=== PATIENT | male | born 1970 | race Caucasian/White ===

== ENCOUNTER 2018-04-22 15:51 | Observation (INO) ==
[2018-04-22] MEDS ORDERED: 0.9 % Sodium Chloride 1,000 ML IVC ONE ×2 (16:14→16:39)
--- NOTE | 2018-04-22 16:17 | Emergency Department Note ---
Disposition Clinical Impression: Abdominal pain Qualifiers: Abdominal location: epigastric Qualified Code(s): R10.13 - Epigastric pain Nausea & vomiting Qualifiers: Vomiting type: unspecified Vomiting Intractability: non-intractable Qualified Code(s): R11.2 - Nausea with vomiting, unspecified Disposition: Admitted As Inpatient Condition: Fair Time of Disposition: 20:55 General Adult HPI - General Chief complaint: ED Abdominal Pain Stated complaint: Black Bloody stool Time Seen by Provider: 04/22/18 16:05 Nursing Notes Reviewed: Yes Vital Signs Reviewed: Yes - History of Present Illness HPI Narrative: 47-year-old male presents to the emergency department after being sent here by his roll changer for concern for nausea, vomiting, epigastric abdominal pain and concern for dehydration. Dr. Pitt recommended that the patient be admitted. Patient has history of Crohn's disease. He is reporting melenic stool. Patient has any fevers, chills but is reporting epigastric abdominal pain. He denies any shortness of breath, cough, chest pain, pressure, tightness. Pain Scale: 8 - Related Data Home Medications Medication Instructions Recorded Confirmed Escitalopram [Lexapro] 20 mg PO DAILY 04/22/18 04/22/18 OxyCODONE/APAP 5/325 [Percocet 1 tab PO BID 04/22/18 04/22/18 5/325 MG] Prazosin HCl [Minipress] 5 mg PO DAILY 04/22/18 04/22/18 Tizanidine HCl 4 mg PO DAILY PRN 04/22/18 04/22/18 Zolpidem Tartrate [Ambien Cr] 12.5 mg PO HS 04/22/18 04/22/18 clonazePAM [Klonopin] 1 mg PO QID PRN 04/22/18 04/22/18 Allergies Allergy/AdvReac Type Severity Reaction Status Date / Time cefdinir [From Omnicef] Allergy See Verified 04/22/18 15:55 Comments levofloxacin [From Levaquin] Allergy Abdominal Verified 04/22/18 15:55 Pain morphine Allergy Difficulty Verified 04/22/18 15:55 Breathing Penicillins Allergy Nausea Verified 04/22/18 15:55 Sulfa (Sulfonamide Allergy Difficulty Verified 04/22/18 15:55 Antibiotics) Breathing lithium grease Allergy Swelling Uncoded 10/10/16 21:01 of Lip/Tongue/Throat All systems ED: reviewed and negative except as stated. Review of Systems: As Per HPI Constitutional: Denies: fever Cardiovascular: Denies: chest pain, palpitations Respiratory: Denies: cough, dyspnea Gastrointestinal: Reports: abdominal pain, nausea, vomiting, diarrhea, melena Genitourinary: Denies: urgency, dysuria, frequency Integumentary: Denies: rash Neurological: Denies: headache Past Medical History - Past Medical History Medical history: Reports: other Surgical history: Reports: appendectomy Psychiatric history: Reports: anxiety - Social History Smoking Status: Never smoker Smokeless Tobacco Status: No Alcohol use: Reports: none Drug use: Reports: none Physical Exam - Head Head exam: normocephalic - Eye Eye exam: Present: EOMI - ENT ENT exam: normal oropharynx - Neck Neck exam: Present: trachea midline - Chest Chest inspection: Present: symmetric chest wall rise - Respiratory Respiratory exam: Present: normal lung sounds bilaterally. Absent: respiratory distress - Cardiovascular Cardiovascular exam: Present: regular rate, normal rhythm, normal heart sounds - Abdominal Exam Abdominal exam: Present: soft, tenderness. Absent: distention, guarding, rebound Abdominal tenderness: Present: epigastrium, mild - Rectal Exam Cafe Attendant present during exam: Yes Rectal exam: Absent: heme (-) stool, hemorrhoids - Extremities Exam Extremities exam: Present: normal capillary refill - Back Exam Back exam: Present: full ROM - Neurological Exam Neurological exam: Present: alert, oriented X3 - Psychiatric Psychiatric exam: Present: normal affect, normal mood - Skin Skin exam: Present: warm, dry, intact, normal color Course Vital Signs Temperature 98.1 F 04/22/18 15:54 Pulse Rate 80 04/22/18 15:54 Respiratory Rate 18 04/22/18 15:54 Blood Pressure 118/79 04/22/18 15:54 O2 Sat by Pulse Oximetry 98 04/22/18 15:54 Temperature 98.1 F 04/22/18 16:12 Pulse Rate 80 04/22/18 16:12 Respiratory Rate 18 04/22/18 16:12 Blood Pressure 118/79 04/22/18 16:12 O2 Sat by Pulse Oximetry 98 04/22/18 16:12 Oxygen Delivery Oxygen Delivery Room Air Medical Decision Making - [facility] Narrative Medical decision making narrative: 47 year old male presents to the emergency department with concern for nausea, vomiting, melenic stool. Patient appears to be mildly uncomfortable on physical exam. He had epigastric tenderness to palpation on physical exam. We obtained a CBC and it did not reveal a leukocytosis or any evidence of anemia. Kidney function was normal. Patient did have an elevated specific gravity of his urine which could correlate with dehydration. Urinalysis not reveal any evidence of infection. Hemoccult was obtained and was not positive. Patient was given pain medication here in the emergency department. He was also given Zofran for his nausea. Patient was given 2 L of fluid here as well. Obtain CT scan of abdomen and pelvis and this or not reveal any acute abnormality. EKG did not reveal any evidence of ischemia. Troponin was negative. At this time, we will admit patient for further observation and management. Dr. Pitt was consulted as well and he will follow the patient and the hospital. Patient agrees to plan for admission as this is his expectation upon arrival. Patient hemodynamic stable at that time. Chest X-Ray 04/22/18 16:15 IMPRESSION: No acute cardiopulmonary process. D/ / 04/22/2018 16:41:54 Jaret Coto MD / sudha Interpreting Provider: Jaret Coto MD Abdomen/Pelvis CT 04/22/18 16:38 IMPRESSION: No CT evidence for acute intra-abdominal process D/ / Sanjay De Souza / Sanjay De Souza Interpreting Provider: Sanjay De Souza - Lab Data Result diagrams: 04/22/18 16:51 04/22/18 16:51 Lab Results 04/22/18 04/22/18 04/22/18 Range/Units 16:51 16:51 16:51 WBC 10.4 (4.3-11.1) K/mcL RBC 5.46 (4.19-5.50) M/mcL Hgb 15.9 (12.9-16.9) g/dL Hct 46.7 (37.5-50.1) % MCV 85.5 (83.0-100.0) fL MCH 29.1 (28.0-33.3) pg MCHC 34.0 (31.6-35.5) g/dL RDW 13.0 (11.5-14.5) % Plt Count 336 (140-400) K/mcL MPV 9.0 L (9.4-12.4) fL Immature Gran % 0.4 (0-4) % Seg Neutrophils % 72.1 % Lymphocytes % 20.2 % Monocytes % 5.7 % Eosinophils % 1.0 % Basophils % 0.6 % Neutrophils # 7.5 (1.6-8.9) K/mcL Lymphocytes # 2.1 (0.6-4.6) K/mcL Monocytes # 0.6 (0.0-1.3) K/mcL Eosinophils # 0.1 (0.0-0.6) K/mcL Basophils # 0.1 (0.0-0.2) K/mcL PT 12.4 H (9.4-12.1) Seconds INR 1.1 APTT 36.1 H (26.0-36.0) Seconds Sodium 143 (136-145) mEq/L Potassium 3.6 (3.5-5.1) mEq/L Chloride 104 (98-107) mEq/L Carbon Dioxide 29 (23-29) mEq/L BUN 14 (6-20) mg/dL Creatinine 0.92 (0.70-1.30) mg/dL Est GFR ( Amer) > 60 (> 60) Est GFR (Non-Af Amer) > 60 (> 60) BUN/Creatinine Ratio 15 (6-26) Glucose 122 H (70-105) mg/dL Calculated Osmolality 298 (280-300) Calcium 10.1 (8.6-10.3) mg/dL Total Bilirubin 0.7 (0.3-1.0) mg/dL Direct Bilirubin 0.1 (0.0-0.2) mg/dL Indirect Bilirubin 0.6 (0.0-1.2) mg/dL AST 17 (13-39) Units/L ALT 13 (7-52) Units/L Alkaline Phosphatase 104 (34-104) Units/L Troponin I (< 0.04) ng/mL Serum Total Protein 7.5 (6.4-8.9) g/dL Albumin 5.1 (3.5-5.7) g/dL Globulin 2.4 (2.4-3.5) g/dL Albumin/Globulin Ratio 2.1 (1.1-2.2) Amylase 31 (29-103) Units/L Lipase 55 (11-82) Units/L Urine Color (Yellow) Urine Clarity (Clear) Urine pH (5.0-8.0) pH Units Ur Specific Lynch (1.010-1.025) Urine Protein (Neg-Trace) mg/dL Urine Glucose (UA) (Normal) mg/dL Urine Ketones (Negative) mg/dL Urine Blood (Negative) Urine Nitrite (Negative) Urine Bilirubin (Negative) Urine Urobilinogen (Normal) mg/dL Ur Leukocyte Esterase (Negative) Ur Culture Indicated? (NO) Stool Occult Blood (Negative) 04/22/18 04/22/18 04/22/18 Range/Units 16:51 20:11 20:33 WBC (4.3-11.1) K/mcL RBC (4.19-5.50) M/mcL Hgb (12.9-16.9) g/dL Hct (37.5-50.1) % MCV (83.0-100.0) fL MCH (28.0-33.3) pg MCHC (31.6-35.5) g/dL RDW (11.5-14.5) % Plt Count (140-400) K/mcL MPV (9.4-12.4) fL Immature Gran % (0-4) % Seg Neutrophils % % Lymphocytes % % Monocytes % % Eosinophils % % Basophils % % Neutrophils # (1.6-8.9) K/mcL Lymphocytes # (0.6-4.6) K/mcL Monocytes # (0.0-1.3) K/mcL Eosinophils # (0.0-0.6) K/mcL Basophils # (0.0-0.2) K/mcL PT (9.4-12.1) Seconds INR APTT (26.0-36.0) Seconds Sodium (136-145) mEq/L Potassium (3.5-5.1) mEq/L Chloride (98-107) mEq/L Carbon Dioxide (23-29) mEq/L BUN (6-20) mg/dL Creatinine (0.70-1.30) mg/dL Est GFR ( Amer) (> 60) Est GFR (Non-Af Amer) (> 60) BUN/Creatinine Ratio (6-26) Glucose (70-105) mg/dL Calculated Osmolality (280-300) Calcium (8.6-10.3) mg/dL Total Bilirubin (0.3-1.0) mg/dL Direct Bilirubin (0.0-0.2) mg/dL Indirect Bilirubin (0.0-1.2) mg/dL AST (13-39) Units/L ALT (7-52) Units/L Alkaline Phosphatase (34-104) Units/L Troponin I < 0.03 (< 0.04) ng/mL Serum Total Protein (6.4-8.9) g/dL Albumin (3.5-5.7) g/dL Globulin (2.4-3.5) g/dL Albumin/Globulin Ratio (1.1-2.2) Amylase (29-103) Units/L Lipase (11-82) Units/L Urine Color Yellow (Yellow) Urine Clarity Clear (Clear) Urine pH 6.0 (5.0-8.0) pH Units Ur Specific Lynch > 1.030 H (1.010-1.025) Urine Protein Negative (Neg-Trace) mg/dL Urine Glucose (UA) Normal (Normal) mg/dL Urine Ketones Negative (Negative) mg/dL Urine Blood Negative (Negative) Urine Nitrite Negative (Negative) Urine Bilirubin Negative (Negative) Urine Urobilinogen Normal (Normal) mg/dL Ur Leukocyte Esterase Negative (Negative) Ur Culture Indicated? NO (NO) Stool Occult Blood Negative (Negative) - EKG Data EKG #1 EKG attestation: Yes I reviewed and interpreted this EKG. EKG results narrative: 16:34 Ventricular rate 80 bpm, MD interval 132 ms, QRS duration 95 ms, QT 368 ms, QTC 404 ms, normal axis. Sinus rhythm with a ventricular rate of 80 beats for minute. No evidence of any ischemic ST changes on this EKG. Attestation Statement - Attestation Attestation: Patient was seen with resident physician. I reviewed the history, physical, assessment and plan, and agree with the findings. I also personally evaluated this patient and had [id number] time with this patient. 47-year-old male presents emergency Department chief complaint of abdominal pain. He also has had dark stools. Patient has a history of admissions for Crohn's disease. He was seen by Dr. Haider was sent him in to the emergency department for evaluation and admission. Patient states he symptoms started several days ago and have progressively gotten worse. He said maybe for 5 days of the darker stools. No fevers or chills. He is also had nausea and vomiting. Review of systems as above remained reviewed. Physical exam vital signs are stable. ENT is unremarkable. Heart regular rhythm and rate. Lungs clear. Abdomen soft diffusely tender without guarding rigidity. Extremities unremarkable. Neurologically intact. Skin no rashes. Rectal per resident note. Initial H&H was normal. We will do remainder of workup. Treat with IV fluids. We will contact hospitalist service and arrange for admission for GI bleed. We will also get a CT scan the abdomen and pelvis to ensure there is no other abnormalities that need to be addressed. We already spoke with Dr. Haider prior to the patient's arrival. He will be consult on this case. Workup did not reveal any specific abnormalities that would result in the patient's symptoms. Agree with the resident physician assessment and plan.
[2018-04-22] MEDS ORDERED: Isovue-370 500 ML INFUS..BTL IV ONE (16:38)
[2018-04-22] MEDS ORDERED: Ondansetron 4 MG/2 ML VIAL IVP ONE (16:39)
[2018-04-22] MEDS ORDERED: *HR* FentaNYL (PF) 100 MCG/2 ML VIAL IVP ONE ×3 (16:39→20:55)
[2018-04-22] MEDS ORDERED: Pantoprazole 40 MG VIAL IVP ONE (16:40)
[2018-04-22 17:06] LABS: Basophils # 0.1 K/mcL (0.0-0.2); Basophils % 0.6 %; Eosinophils # 0.1 K/mcL (0.0-0.6); Hematocrit 46.7 % (37.5-50.1); Hemoglobin 15.9 g/dL (12.9-16.9); Immature Granulocytes % 0.4 % (0-4); Lymphocytes # 2.1 K/mcL (0.6-4.6); Lymphocytes % 20.2 %; Mean Corpuscular Hemoglobin 29.1 pg (28.0-33.3); Mean Corpuscular Volume 85.5 fL (83.0-100.0); Monocytes # 0.6 K/mcL (0.0-1.3); Monocytes % 5.7 %; Neutrophils # 7.5 K/mcL (1.6-8.9); Platelet Count 336 K/mcL (140-400); Red Blood Count 5.46 M/mcL (4.19-5.50); Segmented Neutrophils % 72.1 %
[2018-04-22 17:11] LABS: INR 1.1; Prothrombin Time 12.4 Seconds (9.4-12.1)
[2018-04-22 17:13] LABS: Activated Partial Thrombo Time 36.1 Seconds (26.0-36.0)
[2018-04-22 17:22] LABS: Alanine Aminotransferase 13 Units/L (7-52); Albumin 5.1 g/dL (3.5-5.7); Albumin/Globulin Ratio 2.1 (1.1-2.2); Alkaline Phosphatase 104 Units/L (34-104); Amylase 31 Units/L (29-103); Aspartate Amino Transferase 17 Units/L (13-39); BUN/Creatinine Ratio 15 (6-26); Bilirubin,Direct 0.1 mg/dL (0.0-0.2); Bilirubin,Indirect 0.6 mg/dL (0.0-1.2); Bilirubin,Total 0.7 mg/dL (0.3-1.0); Blood Urea Nitrogen 14 mg/dL (6-20); Calcium 10.1 mg/dL (8.6-10.3); Carbon Dioxide 29 mEq/L (23-29); Chloride 104 mEq/L (98-107); Globulin 2.4 g/dL (2.4-3.5); Glucose 122 mg/dL (70-105); Lipase 55 Units/L (11-82); Osmolality,Calculated 298 (280-300); Potassium 3.6 mEq/L (3.5-5.1); Sodium 143 mEq/L (136-145); Total Protein 7.5 g/dL (6.4-8.9); eGFR For Non-African Americans > 60 (> 60)
[2018-04-22] MEDS ORDERED: clonazePAM 0.5 MG TABLET PO STA (18:20)
[2018-04-22 20:43] LABS: Bilirubin,Urine Negative (Negative); Blood,Urine Negative (Negative); Clarity,Urine Clear (Clear); Color,Urine Yellow (Yellow); Glucose,Urine (UA) Normal (Normal); Ketones,Urine Negative (Negative); Leukocyte Esterase,Urine Negative (Negative); Nitrite,Urine Negative (Negative); Protein,Urine Negative (Neg-Trace); Specific Gravity,Urine > 1.030 (1.010-1.025); Urobilinogen,Urine Normal (Normal)
[2018-04-22] MEDS ORDERED: tiZANidine 4 MG TABLET PO PRN (20:51)
[2018-04-22] MEDS ORDERED: Ondansetron 4 MG/2 ML VIAL IVP PRN (21:27)
--- NOTE | 2018-04-22 21:30 | Internal Med History&Physical ---
Date of Encounter: 04/22/18 Time of Encounter: 21:28 Internal Medicine - H&P: HPI Chief complaint: abdominal pain Admitted From: Home Plans for Post Hospital Care: Home History of present illness: Mr. Orozco is a 47 year old male who was diagnosed with Crohn's disease in the mid 90s who presents to the emergency room upon referral by his implementation services analyst due to complaints of nausea, vomiting, epigastric cramping abdominal pain and concern for dehydration. As per the patient the symptoms started within the last 5 days for which reason he sought medical attention, seeing Dr. Pitt who recommended that the patient be admitted. The patient states that over the last few days his stool has been completely black and more recently noticed jason blood. He says has he has been unable to tolerate by mouth he is now constipated. He describes the abdominal pain is cramping in nature and localized to the mid-region. No associated fever or chills. No dyspnea or chest pain. Plan arrival to the emergency room he was seen to have normal vital signs, unremarkable lab work, CT scan not showing any acute inflammatory process and a negative fecal occult blood test. Past Med Surg Social Fam HX - Past Medical History Medical history: other Additional medical history: chrons Psychiatric history: anxiety - Past Surgical History Surgical History: appendectomy Additional surgical history: testicular surgery. Back Surgery - Social History Smoking Status: Never smoker Smokeless Tobacco Status: No Alcohol use: none Drug use: none - Family History Mother Hx Family Cardiac Disorders: Yes Internal Medicine - H&P: Meds Escitalopram [Lexapro] 20 mg PO DAILY 04/22/18 [History] OxyCODONE/APAP 5/325 [Percocet 5/325 MG] 1 tab PO BID 04/22/18 [History] Prazosin HCl [Minipress] 5 mg PO DAILY 04/22/18 [History] Tizanidine HCl 4 mg PO DAILY PRN 04/22/18 [History] Zolpidem Tartrate [Ambien Cr] 12.5 mg PO HS 04/22/18 [History] clonazePAM [Klonopin] 1 mg PO QID PRN 04/22/18 [History] 3 Allergy/AdvReac Type Severity Reaction Status Date / Time cefdinir [From Omnicef] Allergy See Verified 04/22/18 15:55 Comments levofloxacin [From Levaquin] Allergy Abdominal Verified 04/22/18 15:55 Pain morphine Allergy Difficulty Verified 04/22/18 15:55 Breathing Penicillins Allergy Nausea Verified 04/22/18 15:55 Sulfa (Sulfonamide Allergy Difficulty Verified 04/22/18 15:55 Antibiotics) Breathing lithium grease Allergy Swelling Uncoded 10/10/16 21:01 of Lip/Tongue/Throat All Systems PM: A 10-system review of systems was performed and is negative for pertinent findings except as documented above in the HPI. - Constitutional Vitals: Temp Pulse Resp BP Pulse Ox 98.1 F 65 16 117/74 97 04/22/18 16:12 04/22/18 20:35 04/22/18 21:19 04/22/18 21:19 04/22/18 20:35 Exam: Vitals: Viewed and seen to be within normal limits General: Well developed lying in bed in no acute distress Skin: Warm and supple HEENT: Slightly dry mucous membranes. No conjunctivae pallor. Neck: No lymphadenopathy. No JVD. No carotid bruits. No palpable thyroid. Chest: Normal thoracic expansion. Normal breath sounds. Clear to auscultation. Heart: Normal S1 & S2; rhythmic. No rubs or murmurs. Abdomen: Non-distended, soft and moderately tender to palpation in the mesogastrium. No peritoneal reaction. Extremities: No clubbing, cyanosis or edema. No calf tenderness. Normal distal pulses. Neurological: Awake, alert and oriented to person, place and time. No focal deficits. Psych: Appropriate affect. Internal Med - H&P Results - Labs CBC & Chem 7: 04/22/18 16:51 04/22/18 16:51 - Assessment and plan (1) Abdominal pain Current Visit: Yes Status: Acute Assessment and plan: There was an initial concern for a Crohn's flareup. At this time he is afebrile , no inflammatory signs seen on CT, no masses palpated or seen on imaging, normal hemoglobin although perhaps a bit hemoconcentrated, stool test negative for blood. -Will hold off on giving steroids and antibiotics. -Pain control for now with oxycodone/apap as needed. -IVF to resuscitate losses. -GI consult has been requested and will be seen in the morning. Qualifiers: Abdominal location: periumbilical Qualified Code(s): R10.33 - Periumbilical pain (2) Crohn disease Current Visit: Yes Status: Chronic Assessment and plan: The patient has had a colonoscopy within the last 5 years which he states was only remarkable for a few polyps. He is not on any intermediate immunomodulating medications and has been well controlled. -Will be seen by GI for ongoing follow up. Qualifiers: Gastrointestinal tract location: small and large intestine Digestive disease complication type: other complication Qualified Code(s): K50.818 - Crohn's disease of both small and large intestine with other complication (3) Anxiety Current Visit: No Status: Chronic Assessment and plan: Continue clonazepam prn and escitalopram daily. (4) Dehydration Current Visit: Yes Status: Acute Assessment and plan: The patient has slightly dry mucous membranes and a urinary specific gravity of 1.030 suggestive of poor volume likely secondary to vomiting and poor oral intake from his abdominal pain. -Will replete with IV LR. (5) Chronic low back pain Current Visit: No Status: Chronic Assessment and plan: Patient had surgery with spinal fusion done. -Pain meds prn. Qualifiers: Back pain laterality: midline Sciatica presence: unspecified whether sciatica present Qualified Code(s): M54.5 - Low back pain; G89.29 - Other chronic pain (6) DVT prophylaxis Current Visit: No Status: Acute Assessment and plan: SubQ heparin ordered. - Time Spent With Patient Total time spent is greater than 50% in coordination of care (as documented) at patient's floor/unit and/or counseling patient: 25 - 35 minutes
[2018-04-22] MEDS: *HR* Heparin 5,000 UNIT/ML VIAL SQ SCH (22:26)
[2018-04-22] MEDS: Ringers Solution, Lactated 1,000 ML IVC SCH (22:29)
[2018-04-23] MEDS: clonazePAM 1 MG TABLET PO PRN ×4 (00:27→21:31)
[2018-04-23] MEDS: *HR* OxyCODONE/APAP 10/325 TABLET PO PRN ×6 (00:27→23:30)
[2018-04-23] MEDS: *HR* Heparin 5,000 UNIT/ML VIAL SQ SCH ×3 (05:47→21:35)
[2018-04-23] MEDS: Pantoprazole 40 MG VIAL IVP SCH (09:20)
--- NOTE | 2018-04-23 10:15 | Gastroenterology Consult Note ---
<Kobi Sandhun Carlos - Last Filed: 04/23/18 10:10> Date of Encounter: 04/23/18 Time of Encounter: 09:00 - Assessment and plan (1) Crohn disease Current Visit: Yes Status: Chronic Assessment and plan: not currently on treatment, had nausea and vomiting but is improved with IVF and medications, may need steroids if unimproved, will discuss with Dr Mott. Last colonoscopy 2010, is due for repeat Qualifiers: Gastrointestinal tract location: small and large intestine Digestive disease complication type: other complication Qualified Code(s): K50.818 - Crohn's disease of both small and large intestine with other complication (2) Abdominal pain Current Visit: Yes Status: Acute Assessment and plan: Pt states is improved with pain mediations Qualifiers: Abdominal location: periumbilical Qualified Code(s): R10.33 - Periumbilical pain (3) Nausea & vomiting Current Visit: Yes Status: Acute Assessment and plan: Improved, pt was eating a regular diet during assessment. Qualifiers: Vomiting type: unspecified Vomiting Intractability: non-intractable Qualified Code(s): R11.2 - Nausea with vomiting, unspecified - Time Spent With Patient Total time spent is greater than 50% in coordination of care (as documented) at patient's floor/unit and/or counseling patient: GI History of Present Illness - Data of Consult Patient: known to practice within the last 3 years Consult date: 04/23/18 Requesting Physician: Sofía Robert MD - Consult Narrative Reason for consult: crohn's disease History of present illness: Mr. Orozco is a 47 year old male who was diagnosed with Crohn's disease in the mid 90s who presents to the emergency room due to complaints of nausea, vomiting , epigastric cramping abdominal pain and concern for dehydration. Pt was seen in the office yesterday by Dr mott and complainted of coffee ground stools and BRBPR and weight loss of 21 pounds over the past 4 weeks. He reports symptoms started within the last 5 days.The patient states that over the last few days his stool has been completely black and more recently noticed jason blood. He says has he has been unable to tolerate by mouth he is now constipated. He describes the abdominal pain is cramping in nature and localized to the mid- region. No associated fever or chills. No dyspnea or chest pain. CT scan not showing any acute inflammatory process and a negative fecal occult blood test. He is not currently on antibiologics for crohn's disease. 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 EGD/COLON 2011 medium hiatal hernia, polyps, diverticulosis, mild inflammation from rectum to terminal ileum heparin 0547 Past Med Surg Social Fam HX - Past Medical History Medical history: other Additional medical history: chrons Psychiatric history: anxiety - Past Surgical History Surgical History: appendectomy, herniorrhaphy Additional surgical history: testicular surgery. Back Surgery - Social History Smoking Status: Never smoker Smokeless Tobacco Status: No Alcohol use: none Drug use: none - Family History Mother Adopted: No Hx Family Cardiac Disorders: Yes Review of Systems: GI: as per [facility]: denies fever, has some chills EYES: denies yellow discoloration ENT: denies pain with swallowing or difficulty swallowing CARDIO: denies chest pain, palpitations RESP: No Shortness of breath with exertion : reports dark urine and decreased urination NEURO: weakness HEME: Denies any bruising MS: denies joint pain, joint swelling or back pain. DERM: denies rash or itching PSYCH: history of anxiety or depression - Constitutional Vitals: Temp Pulse Resp BP Pulse Ox 97.8 F 58 14 90/57 94 04/23/18 07:44 04/23/18 07:44 04/23/18 07:44 04/23/18 07:44 04/23/18 07:44 Exam: CONSTITUTIONAL:~alert, no acute distress.~HEAD:~normocephalic.~EYES:~no jaundice.~NECK:~no obvious swelling.~HEART:~regular rate and rhythm, no murmurs. ~LUNGS:~bilateral good air entry.~ABDOMEN:~non distended, soft, tender, no masses palpable, no organomegaly, scar well healed~RECTAL EXAM:~Deferred.~ EXTREMITIES:~no clubbing, cyanosis or edema.~SKIN:~multiple tattoos, no stigmata of chronic liver disease.~NEUROLOGIC:~no obvious focal defect.~~~~ Results - Labs CBC & Chem 7: 04/22/18 16:51 04/22/18 16:51 Labs: Last Result Calcium 10.1 mg/dL (8.6-10.3) 04/22/18 16:51 Troponin I < 0.03 ng/mL (< 0.04) 04/22/18 16:51 Stool Occult Blood Negative (Negative) 04/22/18 20:11 Entire Visit Hgb 15.9 g/dL (12.9-16.9) 04/22/18 16:51 Hct 46.7 % (37.5-50.1) 04/22/18 16:51 PT 12.4 Seconds (9.4-12.1) H 04/22/18 16:51 Total Bilirubin 0.7 mg/dL (0.3-1.0) 04/22/18 16:51 AST 17 Units/L (13-39) 04/22/18 16:51 ALT 13 Units/L (7-52) 04/22/18 16:51 Amylase 31 Units/L (29-103) 04/22/18 16:51 Lipase 55 Units/L (11-82) 04/22/18 16:51 - ABG ABG results: PT/INR, D-dimer PT 12.4 Seconds (9.4-12.1) H 04/22/18 16:51 Consult Discharge Plan - Plan Referrals: Paulina Wong CNP [Primary Care Provider] - 04/30/18 3:00 pm Eric Mott MD [Partnered Physician] - (Web request entered. Office will call patient with date and time of appointment. Thank you) <Eric Mott - Last Filed: 04/23/18 17:42> Date of Encounter: 04/23/18 Time of Encounter: 17:30 - Time Spent With Patient Total time spent is greater than 50% in coordination of care (as documented) at patient's floor/unit and/or counseling patient: GI History of Present Illness - Data of Consult Requesting Physician: Sofía Robert MD - Consult Narrative History of present illness: Mr. Orozco is a 47 year old male - Constitutional Vitals: Temp Pulse Resp BP Pulse Ox 97.6 F 68 14 94/56 96 04/23/18 15:43 04/23/18 15:43 04/23/18 15:43 04/23/18 15:43 04/23/18 15:43 Results - Labs CBC & Chem 7: 04/22/18 16:51 08 16:51 Labs: Last Result Calcium 10.1 mg/dL (8.6-10.3) 04/22/18 16:51 Troponin I < 0.03 ng/mL (< 0.04) 04/22/18 16:51 Stool Occult Blood Negative (Negative) 04/22/18 20:11 Entire Visit Hgb 15.9 g/dL (12.9-16.9) 04/22/18 16:51 Hct 46.7 % (37.5-50.1) 04/22/18 16:51 PT 12.4 Seconds (9.4-12.1) H 04/22/18 16:51 Total Bilirubin 0.7 mg/dL (0.3-1.0) 04/22/18 16:51 AST 17 Units/L (13-39) 04/22/18 16:51 ALT 13 Units/L (7-52) 04/22/18 16:51 Amylase 31 Units/L (29-103) 04/22/18 16:51 Lipase 55 Units/L (11-82) 04/22/18 16:51 - ABG ABG results: PT/INR, D-dimer PT 12.4 Seconds (9.4-12.1) H 04/22/18 16:51 - Attending Attestation I have personally performed a face to face evaluation on this patient. I have reviewed and agree with the care plan. History and Exam by me shows: Pt seen. Patient with a history of Crohn disease. He was complaining of having some melena and red bleeding. [facility] patient is still not able to keep any food down. Scan was unremarkable. Recommendation: EGD to rule out peptic ulcer disease. Also colonoscopy with TI examination to make sure he does not have any recurrence of his Crohn's
--- NOTE | 2018-04-23 10:46 | Discharge Summary ---
- NOTES TO OUTPATIENT PROVIDER Notes to Outpatient Provider: follow up with PCP. follow up with Dr. AMADOR- is due to have EGD/ colonoscopy. last colonoscopy was in 2010 and due for a EGD/ colonoscopy. Date of Encounter: 04/23/18 Time of Encounter: 10:41 - Discharge Diagnosis (1) Abdominal pain Priority: Primary Status: Acute Qualifiers: Abdominal location: periumbilical Qualified Code(s): R10.33 - Periumbilical pain (2) Dehydration Priority: Secondary Status: Acute Hospital course: Mr. 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 He was seen at Dr. Amador gastroenterology office with these complaints and was referred to the emergency department to rule out acute exacerbations of his Crohn's. In the ED vitals were stable, CT scan of the abdomen was done results below, fecal occult blood test was negative. Admission labs were negative for any leukocytosis, H&H was stable BMP was unremarkable. He was treated with IV fluids and pain medications with resolution of his symptoms. He was able to tolerate by mouth diet. Spoke to Dr. Amador and he agreed with discharge and follow-up at his office for colonoscopy. as per GI - EGD/COLON 2010 medium hiatal hernia, polyps, diverticulosis, mild inflammation from rectum to terminal ileum CT A/P : IMPRESSION: No CT evidence for acute intra-abdominal process Discharge discussed with: patient, nurse, product support consultant (spoke to Dr. AMADOR who agrees with discharge and OP follow up for colonoscopy ) - Time Spent with Patient Total time spent providing and/or coordinating discharge services: Less than 30 minutes - Discharge Medications Home Medications: Escitalopram [Lexapro] 20 mg PO DAILY 04/22/18 [History] OxyCODONE/APAP 5/325 [Percocet 5/325 MG] 1 tab PO BID 04/22/18 [History] Prazosin HCl [Minipress] 5 mg PO DAILY 04/22/18 [History] Tizanidine HCl 4 mg PO DAILY PRN 04/22/18 [History] Zolpidem Tartrate [Ambien Cr] 12.5 mg PO HS 04/22/18 [History] clonazePAM [Klonopin] 1 mg PO QID PRN 04/22/18 [History] Allergies/Adverse Reactions: 3 Allergy/AdvReac Type Severity Reaction Status Date / Time cefdinir [From Omnicef] Allergy See Verified 04/22/18 15:55 Comments levofloxacin [From Levaquin] Allergy Abdominal Verified 04/22/18 15:55 Pain morphine Allergy Difficulty Verified 04/22/18 15:55 Breathing Penicillins Allergy Nausea Verified 04/22/18 15:55 Sulfa (Sulfonamide Allergy Difficulty Verified 04/22/18 15:55 Antibiotics) Breathing lithium grease Allergy Swelling Uncoded 10/10/16 21:01 of Lip/Tongue/Throat Date of admission: 04/22/18 20:53 Primary care physician: Paulina Wong CNP - Constitutional Vitals: Temp Pulse Resp BP Pulse Ox 97.8 F 58 14 90/57 94 04/23/18 07:44 04/23/18 07:44 04/23/18 07:44 04/23/18 07:44 04/23/18 07:44 Exam: General: Patient is alert, oriented, no acute distress, Head: atraumatic, normocephalic, Eye: normal appearance, PERRL, no scleral icterus, no conjunctival injection ENT: mucous membranes moist, normal external ear exam Neck: normal inspection, trachea midline, full ROM, no carotid bruits Chest: normal inspection, symmetric chest rise Respiratory: Good respiratory effort. Bilateral breath sounds are clear without wheezing, crackles, or rhonchi. Cardiovascular: Regular rate and rhythm. s1 and s2 No clicks, rubs, gallops, or murmors. Abdomen: Bowel sounds present normoactive x-4 quadrants. Abdomen is soft, nondistended. no Epigastric tenderness. No guarding or rebound. No organomegaly noted, obese musculoskeletal: Spontaneously moving all extremities. no edema, no calf tenderness Skin: warm, dry, intact. Neuro: Alert and oriented x4. Sensation light touch intact. Cranial nerves 2- 12 is intact. Not aphasic, gait is steady, rapid hand movements intact, finger- to-nose intact, Psych: Patient's affect is normal - Patient Status Disposition: Home, Self-Care Condition: Fair Functional capacity at discharge: independent ambulation Overall status at discharge: patient is progressing back to baseline - Discharge Instructions Follow Up With: Paulina Wong CNP [Primary Care Provider] - Eric Amador MD [Partnered Physician] - - Diet and Activity Activity: increase activity as tolerated, resume usual activities as tolerated Diet: advance to your usual diet
[2018-04-23] MEDS: Ringers Solution, Lactated 1,000 ML IVC SCH (11:01)
--- NOTE | 2018-04-23 15:33 | Internal Med Progress Note ---
Hospitalist Progress Note - Encounter Date of Encounter: 04/23/18 Time of Encounter: 09:30 - Subjective Interval History: Mr. 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 He was seen at Dr. Pitt gastroenterology office with these complaints and was referred to the emergency department to rule out acute exacerbations of his Crohn's. In the ED vitals were stable, CT scan of the abdomen was done results below, fecal occult blood test was negative. Admission labs were negative for any leukocytosis, H&H was stable BMP was unremarkable. GI was consulted as per GI - EGD/COLON 2011 medium hiatal hernia, polyps, diverticulosis, mild inflammation from rectum to terminal ileum patient developed pain after eating, discharge was held - Gi was updated on status. will follow up to see if he will need colonoscopy in tim AM or not. currently he denies N/v?D, has some genralized, crampy, 5/10, abdominal pain, that is not radiating. denies hematemesis, hematochezia or melena. denies CP,SOB or palpiations, fever or chills. - Exam Vitals: Temp Pulse Resp BP Pulse Ox 97.8 F 58 14 90/57 94 04/23/18 07:44 04/23/18 07:44 04/23/18 07:44 04/23/18 07:44 04/23/18 07:44 Exam: General: Patient is alert, oriented, no acute distress, Head: atraumatic, normocephalic, Eye: normal appearance, PERRL, no scleral icterus, no conjunctival injection ENT: mucous membranes moist, normal external ear exam Neck: normal inspection, trachea midline, full ROM, no carotid bruits Chest: normal inspection, symmetric chest rise Respiratory: Good respiratory effort. Bilateral breath sounds are clear without wheezing, crackles, or rhonchi. Cardiovascular: Regular rate and rhythm. s1 and s2 No clicks, rubs, gallops, or murmors. Abdomen: Bowel sounds present normoactive x-4 quadrants. Abdomen is soft, nondistended. no Epigastric tenderness. No guarding or rebound. No organomegaly noted, obese musculoskeletal: Spontaneously moving all extremities. no edema, no calf tenderness Skin: warm, dry, intact. Neuro: Alert and oriented x4. Sensation light touch intact. Cranial nerves 2- 12 is intact. Not aphasic, gait is steady, rapid hand movements intact, finger- to-nose intact, Psych: Patient's affect is normal - Assessment and Plan (1) Abdominal pain Current Visit: Yes Status: Acute Assessment and Plan: Doubt its Crohn's flareup as there is no leukocytosis and no suggestion of inflammation on CT abdomen and pelvis. Is not on immunosuppressants or Crohn's medications due to history of systemic histoplasmosis while on these drugs- discussed with GI pain control was it improved with pain medication GI on board will follow recommendations - last colonoscopy was done in 2010 and he is due for colonoscopy We will continue IV fluids Nothing by mouth (2) Dehydration Current Visit: Yes Status: Acute Assessment and Plan: Will continue to monitor electrolytes We will continue with IV fluids DVT Prophylaxis: On heparin subcutaneous - Time Spent with Patient Total time spent is greater than 50% in coordination of care (as documented) at patient's floor/unit and/or counseling patient: Plan of Care Discussed with: patient Internal Medicine: Result - Labs CBC & Chem 7: 04/22/18 16:51 04/22/18 16:51 - ABG Interpretation ABG results: PT/INR, D-dimer PT 12.4 Seconds (9.4-12.1) H 04/22/18 16:51 Consult Discharge Plan - Plan Referrals: Paulina Wong CNP [Primary Care Provider] - 04/30/18 3:00 pm Eric Pitt MD [Partnered Physician] - (Web request entered. Office will call patient with date and time of appointment. Thank you) (1) Abdominal pain Qualifiers: Abdominal location: generalized Qualified Code(s): R10.84 - Generalized abdominal pain
[2018-04-23] MEDS ORDERED: SODIUM CHLORIDE/NAHCO3/KCL/PEG 4,000 ML SOLN.RECON PO ONE (17:00)
[2018-04-23] MEDS: 0.9 % Sodium Chloride 1,000 ML IVC SCH (17:43)
--- NOTE | 2018-04-24 02:16 | Electrocardiograph Report ---
[address] [place], [place] [address] Test Date: 2018-04-22 Pat Name: Deepak Orozco Department: 103 Room: 3A22 Gender: M Sign Language Instructor: EKP : 1970 Requested By: Saleem Wright Order Number: [id number] Reading MD: Regla Eastman Measurements Intervals [place] Rate: 80 P: 17 UT: 133 QRS: 46 QRSD: 95 T: 30 QT: 368 QTc: 404 Interpretive Statements SINUS RHYTHM Electronically Signed On 04-23-2018 16:12:16 EDT by Regla Eastman
[2018-04-24] MEDS ORDERED: Ketorolac 30 MG/ML VIAL IVP ONE (03:04)
[2018-04-24] MEDS: *HR* OxyCODONE/APAP 10/325 TABLET PO PRN ×2 (04:13→09:48)
[2018-04-24 04:46] LABS: Basophils % 0.6 %; Eosinophils # 0.3 K/mcL (0.0-0.6); Eosinophils % 4.2 %; Hematocrit 36.9 % (37.5-50.1); Lymphocytes # 2.8 K/mcL (0.6-4.6); Lymphocytes % 44.3 %; Mean Corpuscular HGB Conc 33.3 g/dL (31.6-35.5); Mean Corpuscular Hemoglobin 28.7 pg (28.0-33.3); Mean Platelet Volume 9.2 fL (9.4-12.4); Monocytes # 0.4 K/mcL (0.0-1.3); Monocytes % 6.4 %; Neutrophils # 2.8 K/mcL (1.6-8.9); Platelet Count 257 K/mcL (140-400); Red Blood Count 4.29 M/mcL (4.19-5.50); Segmented Neutrophils % 44.5 %
[2018-04-24 04:51] LABS: Hemoglobin 12.3 g/dL (12.9-16.9)
[2018-04-24 04:55] LABS: BUN/Creatinine Ratio 10 (6-26); Blood Urea Nitrogen 8 mg/dL (6-20); Calcium 8.7 mg/dL (8.6-10.3); Carbon Dioxide 29 mEq/L (23-29); Chloride 109 mEq/L (98-107); Glucose 102 mg/dL (70-105); Osmolality,Calculated 285 (280-300); Potassium 3.7 mEq/L (3.5-5.1); Sodium 138 mEq/L (136-145); eGFR For Non-African Americans > 60 (> 60)
[2018-04-24] MEDS: *HR* Heparin 5,000 UNIT/ML VIAL SQ SCH ×2 (06:06→14:06)
[2018-04-24] MEDS ORDERED: Propofol 500 MG/50 ML INFUS..BTL ONE (06:35)
[2018-04-24] MEDS ORDERED: Lidocaine -MPF 2% 2 ML VIAL ONE (06:36)
[2018-04-24] MEDS ORDERED: *HR* Midazolam HCl 2 MG/2 ML VIAL ONE (07:06)
--- NOTE | 2018-04-24 07:59 | Anesthesia Evaluation PreOp ---
Date of Encounter: 04/24/18 Time of Encounter: 07:55 - Past History Planned Operation: EGD/colonoscopy Cardiac History: Denies any Significant Hx Pulmonary History: Denies Any Significant HX APPLICATOR SPRAYER History: Denies Any Significant HX, Other (s/p lumbar laminectomy) Other Medical History: Other (Crohn's disease) Anesthesia History: Past Anesthesia (multiple prior endoscopic procedures) Alcohol Use: none Drug use: none Medications and Allergies Escitalopram [Lexapro] 20 mg PO DAILY 04/22/18 [History] OxyCODONE/APAP 5/325 [Percocet 5/325 MG] 1 tab PO BID 04/22/18 [History] Prazosin HCl [Minipress] 5 mg PO DAILY 04/22/18 [History] Tizanidine HCl 4 mg PO DAILY PRN 04/22/18 [History] Zolpidem Tartrate [Ambien Cr] 12.5 mg PO HS 04/22/18 [History] clonazePAM [Klonopin] 1 mg PO QID PRN 04/22/18 [History] 3 Allergy/AdvReac Type Severity Reaction Status Date / Time cefdinir [From Omnicef] Allergy See Verified 04/22/18 15:55 Comments levofloxacin [From Levaquin] Allergy Abdominal Verified 04/22/18 15:55 Pain morphine Allergy Difficulty Verified 04/22/18 15:55 Breathing Penicillins Allergy Nausea Verified 04/22/18 15:55 Sulfa (Sulfonamide Allergy Difficulty Verified 04/22/18 15:55 Antibiotics) Breathing lithium grease Allergy Swelling Uncoded 10/10/16 21:01 of Lip/Tongue/Throat - Meds/Allergy Pre-op Review Medications Reviewed: Yes Allergies Reviewed: Yes Beta Blockers on Current Med List: No Anesthesia Results - Labs 04/24/18 04:25 04/24/18 04:25 Anesthesia Exam Selected Entries 04/24/18 06:40 Temperature 97.8 F Pulse Rate 50 Respiratory Rate 15 Blood Pressure 103/60 O2 Sat by Pulse Oximetry 95 Weight: 78 kg NPO (# of Hours): over 8 hours - HEENT Pupil (Motor): Pupils equal Mallampati: II Teeth: Normal Oral Opening: Greater than 3 - Cardiac Rhythm: Regular Murmur: None - Pulmonary Breath Sounds: bilateral Clear Respiratory Effort: Symmetrical Anesthesia Assess/Plan ASA Score: 2 Modified Issa Scale for Level of Consciousness: Cooperative, oriented, and tranquil Anesthetic Plan: MAC Monitoring Plan: Standard Monitors Recovery Plan: Other (Discussed MAC anesthesia, agreed to proceed.)
[2018-04-24] MEDS: 0.9 % Sodium Chloride 1,000 ML IVC SCH (08:24)
[2018-04-24] MEDS ORDERED: Simethicone 40 MG/0.6 ML MLS IR ONE (08:31)
[2018-04-24] MEDS: Pantoprazole 40 MG VIAL IVP SCH (09:49)
[2018-04-24] MEDS: clonazePAM 1 MG TABLET PO PRN ×2 (09:49→14:06)
[2018-04-24 16:38] VITALS: BP 94/57
== END 2018-04-24 17:00 | disposition home or self-care (01) ==
LOC: EMEROO 15:51 → 3ANU 15:51 → SUATTDRO 20:53 → 3ANU 21:20
PROVIDERS: ADMIT Student in an Organized Health Care Education/Training Program; ATTEND Internal Medicine
PROC: ENDOEBX (2018-04-24 08:00)

== ENCOUNTER 2019-06-18 11:53 | Observation (INO) ==
[2019-06-18] MEDS ORDERED: Aspirin 81 MG TAB.CHEW PO ONE (12:12)
[2019-06-18] MEDS ORDERED: Ondansetron 4 MG/2 ML VIAL IVP ONE (12:14)
[2019-06-18] MEDS ORDERED: 0.9 % Sodium Chloride 1,000 ML ONE (12:27)
[2019-06-18 12:35] LABS: Basophils # 0.1 K/mcL (0.0-0.2); Basophils % 0.7 %; Eosinophils # 0.3 K/mcL (0.0-0.6); Eosinophils % 2.4 %; Hematocrit 44.7 % (37.5-50.1); Hemoglobin 14.7 g/dL (12.9-16.9); Immature Granulocytes % 0.3 % (0-4); Lymphocytes # 2.1 K/mcL (0.6-4.6); Lymphocytes % 17.1 %; Mean Corpuscular HGB Conc 32.9 g/dL (31.6-35.5); Mean Corpuscular Hemoglobin 27.9 pg (28.0-33.3); Mean Corpuscular Volume 84.8 fL (83.0-100.0); Mean Platelet Volume 9.1 fL (9.4-12.4); Monocytes # 0.5 K/mcL (0.0-1.3); Platelet Count 340 K/mcL (140-400); Red Blood Count 5.27 M/mcL (4.19-5.50); Red Cell Distribution Width 12.5 % (11.5-14.5); Segmented Neutrophils % 75.5 %
[2019-06-18] MEDS: Nitroglycerin 0.4 MG TAB.SUBL SL PRN ×3 (12:35→12:51)
[2019-06-18 12:57] LABS: BUN/Creatinine Ratio 12 (6-26); Blood Urea Nitrogen 9 mg/dL (6-20); Calcium 9.4 mg/dL (8.6-10.3); Carbon Dioxide 28 mEq/L (23-29); Chloride 106 mEq/L (98-107); Glucose 109 mg/dL (70-105); Osmolality,Calculated 287 (280-300); Potassium 4.5 mEq/L (3.5-5.1); Sodium 139 mEq/L (136-145); Troponin I < 0.03 ng/mL (< 0.04); eGFR For African Americans > 60 (> 60); eGFR For Non-African Americans > 60 (> 60)
[2019-06-18] MEDS ORDERED: Morphine Sulfate 2 MG/ML SYRINGE IVP ONE (13:14)
[2019-06-18] MEDS ORDERED: 0.9 % Sodium Chloride 1,000 ML IVC ONE (13:14)
[2019-06-18] MEDS ORDERED: Isovue-370 500 ML BOTTLE IVP ONE (13:14)
[2019-06-18 13:53] LABS: Alanine Aminotransferase 6 Units/L (7-52); Albumin 4.2 g/dL (3.5-5.7); Albumin/Globulin Ratio 1.6 (1.1-2.2); Alkaline Phosphatase 105 Units/L (34-104); Aspartate Amino Transferase 13 Units/L (13-39); Bilirubin,Indirect 0.3 mg/dL (0.0-1.2); Bilirubin,Total 0.3 mg/dL (0.3-1.0); Globulin 2.6 g/dL (2.4-3.5); Total Protein 6.8 g/dL (6.4-8.9)
[2019-06-18 13:55] LABS: Bilirubin,Urine Negative (Negative); Blood,Urine Negative (Negative); Clarity,Urine Clear (Clear); Color,Urine Yellow (Yellow); Glucose,Urine (UA) Normal (Normal); Ketones,Urine Negative (Negative); Leukocyte Esterase,Urine Negative (Negative); Nitrite,Urine Negative (Negative); PH,Urine 7.5 pH Units (5.0-8.0); Protein,Urine Negative (Neg-Trace); Urobilinogen,Urine Normal (Normal)
[2019-06-18] MEDS ORDERED: *HR* HYDROmorphone (PF) 1 MG/ML SYRINGE IVP ONE (14:28)
[2019-06-18] MEDS ORDERED: Ondansetron 4 MG/2 ML VIAL IVP PRN (15:32)
[2019-06-18] MEDS ORDERED: Naloxone 0.4 MG/ML INJ IVP PRN (15:32)
[2019-06-18] MEDS ORDERED: Ketorolac 15 MG/ML VIAL IVP PRN (15:32)
[2019-06-18] MEDS: Ketorolac 30 MG/ML VIAL IVP PRN (19:33)
[2019-06-18] MEDS: Ringers Solution, Lactated 1,000 ML IVC SCH (19:34)
[2019-06-19] MEDS ORDERED: Acetaminophen IV 1,000 MG/100 ML INFUS..BTL IVPB ONE (00:50)
[2019-06-19] MEDS ORDERED: 0.9 % Sodium Chloride 1,000 ML IVC ONE (01:34)
[2019-06-19] MEDS ORDERED: Regadenoson 0.4 MG/5 ML SYRINGE IVP ONE (06:44)
[2019-06-19] MEDS ORDERED: Ringers Solution, Lactated 1,000 ML ONE (10:19)
[2019-06-19] MEDS: Ringers Solution, Lactated 1,000 ML IVC SCH (10:24)
[2019-06-19 10:36] LABS: Basophils # 0.1 K/mcL (0.0-0.2); Basophils % 0.8 %; Eosinophils # 0.2 K/mcL (0.0-0.6); Hematocrit 40.5 % (37.5-50.1); Hemoglobin 13.7 g/dL (12.9-16.9); Immature Granulocytes % 0.3 % (0-4); Lymphocytes # 2.2 K/mcL (0.6-4.6); Lymphocytes % 28.1 %; Mean Corpuscular HGB Conc 33.8 g/dL (31.6-35.5); Mean Corpuscular Hemoglobin 28.2 pg (28.0-33.3); Mean Corpuscular Volume 83.3 fL (83.0-100.0); Mean Platelet Volume 9.3 fL (9.4-12.4); Monocytes # 0.5 K/mcL (0.0-1.3); Monocytes % 5.8 %; Neutrophils # 4.8 K/mcL (1.6-8.9); Platelet Count 319 K/mcL (140-400); Red Blood Count 4.86 M/mcL (4.19-5.50); Red Cell Distribution Width 12.4 % (11.5-14.5); White Blood Count 7.7 K/mcL (4.3-11.1)
[2019-06-19 10:54] LABS: Alanine Aminotransferase 5 Units/L (7-52); Albumin 3.9 g/dL (3.5-5.7); Albumin/Globulin Ratio 1.7 (1.1-2.2); Alkaline Phosphatase 95 Units/L (34-104); Aspartate Amino Transferase 11 Units/L (13-39); BUN/Creatinine Ratio 14 (6-26); Bilirubin,Total 0.4 mg/dL (0.3-1.0); Blood Urea Nitrogen 10 mg/dL (6-20); Carbon Dioxide 26 mEq/L (23-29); Chloride 108 mEq/L (98-107); Chol/HDL Ratio 6.1 (0-4.9); Globulin 2.3 g/dL (2.4-3.5); Glucose 94 mg/dL (70-105); Osmolality,Calculated 287 (280-300); Potassium 3.9 mEq/L (3.5-5.1); Sodium 139 mEq/L (136-145); Total Protein 6.2 g/dL (6.4-8.9); eGFR For African Americans > 60 (> 60); eGFR For Non-African Americans > 60 (> 60)
[2019-06-19] MEDS ORDERED: traMADol 50 MG TABLET PO PRN (10:54)
[2019-06-19 11:08] LABS: Estimated Average Glucose 137 mg/dl
[2019-06-19] MEDS ORDERED: Ringers Solution, Lactated 1,000 ML IVC SCH (11:45)
[2019-06-19] MEDS ORDERED: Nicotine 21 MG PATCH.TD24 TD SCH (14:00)
[2019-06-19 14:44] VITALS: BP 106/68
[2019-06-19] MEDS: Ketorolac 30 MG/ML VIAL IVP PRN (17:13)
== END 2019-06-19 19:00 | disposition left against medical advice (07) ==
LOC: 3ANU 11:53 → EMEROOARM 11:53 → SUATTDRO 16:36 → 3ANU 18:35
PROVIDERS: ADMIT Pharmacist; ATTEND Internal Medicine